=== PATIENT | male | born 1975 | race Caucasian/White ===

== ENCOUNTER → 2016-08-21 | Outpatient (CLI) | payer OTHER ==
[~2016-08-21] MED LIST: ATOR-24 PO; HYDR-3983 PO; LEVO50TA6 PO; LISI40TA PO; MONT1TAB5 PO; TAMS0.4C38 PO
--- NOTE | 2016-08-21 13:03 | DIAGNOSTIC IMAGING REPORT ---
KUB CLINICAL HISTORY: Dysuria. Right sided flank pain. COMPARISON STUDY: CT of the abdomen and pelvis April 30, 2015 and KUB November 26, 2015. FINDINGS: Several left renal calculi measure up to 4 mm. A right pelvic calcification represents a phlebolith. No ureteral calculi are identified. Bowel gas pattern is normal. IMPRESSION: 1. Left-sided nephrolithiasis. 2. No ureteral calculi identified. Electronically signed by: Pee Brown M.D. 08/21/2016 1:01 PM Dictated Date/Time: 08/21/2016 12:59 PM
[2016-08-21 13:26] LABS: URINE APPEARANCE CLEAR (CLEAR); URINE BILIRUBIN NEG (NEG); URINE COLOR YELLOW; URINE NITRITE NEG (NEG); UROBILINOGEN NEG (NEG)
[2016-08-21 13:34] LABS: MANUAL MICROSCOPIC REQUIRED? NO; REVIEW REQ? NO
== END | disposition home or self-care (01) ==
LOC: C.RAD 12:07
PROVIDERS: ATTEND Urology
DX: R30.0 Dysuria (principal)

== ENCOUNTER → 2016-08-28 | Outpatient (CLI) | payer OTHER ==
--- NOTE | 2016-08-28 14:11 | DIAGNOSTIC IMAGING REPORT ---
RIBS UNILATERAL WITH PA CHEST CLINICAL HISTORY: R07.81 Rib [id number] Fall trauma. Pain. COMPARISON STUDY: 11/06/2015 FINDINGS: Negative ribs. Specifically, no evidence for fracture or abnormal periosteal reaction.. Lungs are clear. No evidence for cardiac enlargement. IMPRESSION: 1. Negative right ribs. 2. Negative chest. Electronically signed by: Dane Mckenzie M.D. 08/28/2016 2:10 PM Dictated Date/Time: 08/28/2016 2:09 PM
== END | disposition home or self-care (01) ==
LOC: C.RAD 11:27
PROVIDERS: ATTEND Internal Medicine
DX: R07.81 Pleurodynia (principal); W19.XXXA Unspecified fall, initial encounter

== ENCOUNTER → 2016-09-27 | Outpatient (CLI) | payer OTHER ==
[2016-09-27 09:53] LABS: BASO % 1.1 %; BASO ABS # 0.08 K/uL (0-0.2); COMPLETE YES; EOS % 1.4 %; LYMPH % 25.4 %; LYMPH ABS # 1.88 K/uL (1.2-3.4); MEAN CELL VOLUME 90.9 fL (80-100); MEAN CORPUSCULAR HEMOGLOBIN 32.2 pg (25-34); MEAN CORPUSCULAR HGB CONC 35.4 g/dl (32-36); MEAN PLATELET VOLUME 9.6 fL (7.4-10.4); MONO % 11.2 %; NEUT % 60.9 %; PLATELET COUNT 287 K/uL (130-400); RED BLOOD COUNT 5.06 M/uL (4.7-6.1)
[2016-09-27 10:31] LABS: THYROID STIMULATING HORMONE 16.8 uIu/ml (0.300-4.500)
== END | disposition home or self-care (01) ==
LOC: C.LAB 09:20
PROVIDERS: ATTEND Internal Medicine
DX: E03.9 Hypothyroidism, unspecified (principal); D72.829 Elevated white blood cell count, unspecified

== ENCOUNTER → 2016-10-16 | Outpatient (CLI) | payer OTHER ==
--- NOTE | 2016-10-16 11:58 | DIAGNOSTIC IMAGING REPORT ---
THYROID ULTRASOUND HISTORY: E04.2 Multiple thyroid nodules, 6 month follow-[id number] COMPARISON: Thyroid ultrasound 04/06/2016. FINDINGS: Right lobe: 6.0 x 2.4 x 2.0 cm. The gland is heterogeneous. There is again noted a 1.6 x 0.8 x 0.7 cm solid and cystic nodule. This remains unchanged. Left lobe: 6.4 x 2.5 x 1.9 cm. A stable 6 mm complex nodule. Isthmus: 6 mm in thickness. No nodules. IMPRESSION: Mildly enlarged and heterogeneous thyroid gland is again noted. Stable small bilateral nodules with the largest on the right measuring 1.6 cm. These do not meet sonographic criteria for biopsy. Electronically signed by: Tai Hyatt M.D. 10/16/2016 11:56 AM Dictated Date/Time: 10/16/2016 11:54 AM
== END | disposition home or self-care (01) ==
LOC: C.ULTR 10:59
PROVIDERS: ATTEND Internal Medicine
DX: E04.2 Nontoxic multinodular goiter (principal)

== ENCOUNTER → 2016-11-13 | Outpatient (CLI) | payer OTHER ==
--- NOTE | 2016-11-13 17:26 | DIAGNOSTIC IMAGING REPORT ---
KUB HISTORY: N20.0 Nephrolithiasis COMPARISON: KUB 08/21/2016. FINDINGS: The bowel gas pattern is unremarkable. There are no dilated loops of small bowel to suggest an obstruction. The renal shadows are mostly obscured by overlying bowel. This likely obscures the patient's known left renal calculi. Punctate density overlying the left renal shadow is likely within the bowel. No ureteral or bladder catheter identified. No pneumoperitoneum or pneumatosis. IMPRESSION: The patient's known left renal calculi are obscured by overlying bowel. No ureteral or bladder calculi identified. Electronically signed by: Tai Hyatt M.D. 11/13/2016 5:24 PM Dictated Date/Time: 11/13/2016 5:23 PM
== END | disposition home or self-care (01) ==
LOC: C.RAD 16:49
PROVIDERS: ATTEND Urology
DX: N20.0 Calculus of kidney (principal)

== ENCOUNTER 2017-03-05 14:38 | Emergency (ER) | payer OTHER ==
[~2017-03-05] VITALS: Ht 185.4 cm; Wt 111.0 kg
[~2017-03-05 14:38] MED LIST changes: -LEVO50TA6 PO
[2017-03-05 14:41] VITALS: Ht 185.4 cm; Wt 111.0 kg
--- NOTE | 2017-03-05 15:21 | DIAGNOSTIC IMAGING REPORT ---
CHEST ONE VIEW PORTABLE CLINICAL HISTORY: 41 years-old Male presenting with Evaluate Fever/Sepsis. TECHNIQUE: Portable upright AP view of the chest was obtained. COMPARISON: 08/28/2016. FINDINGS: Cardiomediastinal silhouette normal. Lungs and pleural spaces clear. Osseous structures normal. Upper abdomen normal. IMPRESSION: 1. No acute cardiopulmonary disease. Electronically signed by: Estiven Yanes M.D. 03/05/2017 3:19 PM Dictated Date/Time: 03/05/2017 3:19 PM
[2017-03-05] MEDS ORDERED: LEVO50TA6 PO (15:31)
--- NOTE | 2017-03-05 15:51 | EMERGENCY ROOM VISIT NOTE ---
History Report prepared by Mark: Heath Marks Under the Supervision of: Dr. Severo Jay D.O. First contact with patient: 14:48 Chief Complaint: CARDIAC ASSESSMENT Stated Complaint: TIGHTNESS IN CHEST SLIGHT PAIN IN LEFT History of Present Illness The patient is a 41 year old male who presents to the Emergency Room with complaints of constant chest pain and tightness starting around 0500 this morning. The patient states that he woke up this morning with chest tightness and left sided chest pain, and he states that it is tight when he takes a breath , though denies any shortness of breath. He denies any leg swelling or leg pain. The patient additionally states that he recently ran a [employer] [place] race, and he did not have any symptoms. The patient states that he takes cholesterol and thyroid medication. He denies any family history of heart disease at an early age, and he states that he quit smoking in June. Source of History: patient Onset: 0500 Position: chest Quality: other (tightness) Timing: constant Associated Symptoms: No SOB Review of Systems See HPI for pertinent positives & negatives. A total of 10 systems reviewed and were otherwise negative. Past Medical & Surgical Medical Problems: (1) Hypertension Family History Cancer Diabetes mellitus Heart disease Hypertension Social History Smoking Status: Former Smoker Alcohol Use: occasionally Marital Status: Housing Status: lives with family Occupation Status: employed Current/Historical Medications Scheduled Atorvastatin (Lipitor), 40 MG PO QPM Levothyroxine Sodium (Levothyroxine Sodium), 50 MCG PO DAILY Lisinopril (Zestril), 40 MG PO DAILY Allergies Coded Allergies: No Known Allergies (Unverified , 11/15/15) Physical Exam Vital Signs Date Time Temp Pulse Resp B/P (MAP) Pulse Ox O2 Delivery O2 Flow Rate FiO2 03/05/17 15:38 58 14 95 Room Air 03/05/17 15:31 168/106 03/05/17 15:13 152/92 03/05/17 15:12 64 12 152/92 96 Room Air 03/05/17 15:09 67 03/05/17 15:08 63 12 97 03/05/17 14:52 97 Room Air 03/05/17 14:41 36.6 75 20 178/97 97 Room Air Physical Exam CONSTITUTIONAL/VITAL SIGNS: Reviewed / noted above. GENERAL: Non-toxic in appearance. INTEGUMENTARY: Warm, dry, and [place]. HEAD: Normocephalic. EYES: without scleral icterus or trauma. ENT/OROPHARYNX: clear and moist. LYMPHADENOPATHY/NECK: Is supple without lymphadenopathy or meningismus. RESPIRATORY: Lungs clear and equal. CARDIOVASCULAR: Regular rate and rhythm. GI/ABDOMEN: Soft and nontender. No organomegaly or pulsatile mass. No rebound or guarding. Normal bowel sounds. EXTREMITIES: Warm and well perfused. BACK: No CVA tenderness. NEUROLOGICAL: Intact without focal deficits. PSYCHIATRIC: normal affect. MUSCULOSKELETAL: Normally developed with good muscle tone. Medical Decision & Procedures ER Provider Diagnostic Interpretation: Radiology results as stated below per my review and radiologist interpretation: CHEST ONE VIEW PORTABLE CLINICAL HISTORY: 41 years-old Male presenting with Evaluate Fever/Sepsis. TECHNIQUE: Portable upright AP view of the chest was obtained. COMPARISON: 08/28/2016. FINDINGS: Cardiomediastinal silhouette normal. Lungs and pleural spaces clear. Osseous structures normal. Upper abdomen normal. IMPRESSION: 1. No acute cardiopulmonary disease. Electronically signed by: Estiven Yanes M.D. 03/05/2017 3:19 PM Dictated Date/Time: 03/05/2017 3:19 PM Laboratory Results Test 03/05/17 15:09 Bedside Troponin I < 0.030 ng/ml (0-0.045) Laboratory results as stated above per my review. ECG Indication: chest pain Rate (beats per minute): 74 Rhythm: normal sinus Findings: no ectopy, other (No injury) ED Course 1448: Previous medical records were reviewed. The patient was evaluated in room A2. A complete history and physical examination was performed. 1558: On reevaluation, the patient is feeling well. I discussed the results and findings with the patient. He verbalized agreement of the treatment plan. He was discharged home. Medical Decision the differential was considered includes acute myocardial infarction, acute coronary syndrome, myocarditis, pericarditis, pericardial effusions /tamponade, esophageal perforation, thoracic aortic dissection, pulmonary embolism, pneumonia, pneumothorax, pancreatitis, shingles, acute cholecystitis, perforated abdominal viscus. This is a 41-year-old male who presents to the ED with a chief complaint of slight tightness in his chest that is most prominent when he attempts take a deep breath. He also reports a small pain in his chest. The patient's symptoms started around 5 AM. The patient reports a history of high cholesterol and thyroid issues which he takes medication. He denies any early family history of heart disease. He is not a current smoker. He has not had any recent exertional symptoms. He reports that he recently ran a 4K race and did not have any symptoms. He denies any lower extremity swelling or pain. Denies other DVT risk factors. The patient's initial blood pressure was elevated. His physical exam is unremarkable. An EKG shows sinus rhythm at a rate of 74. Troponin is negative. Chest x-ray did not show acute disease. Complete metabolic panel was unremarkable. The patient was told results. He is felt to be stable for discharge and outpatient follow-up. Medication Reconcilliation Current Medication List: was personally reviewed by me Blood Pressure Screening Patient's blood pressure: Elevated blood pressure Blood pressure disposition: Referred to PCP Impression Primary Impression: Substernal chest pain Scribe Attestation The scribe's documentation has been prepared under my direction and personally reviewed by me in its entirety. I confirm that the note above accurately reflects all work, treatment, procedures, and medical decision making performed by me. Departure Information Dispostion Home / Self-Care Referrals Luigi Sarabia M.D. (PCP) Forms IMPORTANT VISIT INFORMATION Patient Instructions My [facility] [employer] Additional Instructions Test results today were normal. Follow-up with your doctor for recheck as needed or if symptoms persist.
[2017-03-05 16:16] LABS: ISTAT CREATININE 1.1 mg/dl (0.6-1.3); ISTAT HEMOGLOBIN 16.7 g/dl (14.0-18.0); ISTAT IONIZED CALCIUM 1.29 mmol/l (1.12-1.32)
[2017-03-05 16:17] VITALS: BP 164/103; PULSE 58; TEMP 36.6; O2SAT 97
== END 2017-03-05 16:17 | disposition home or self-care (01) ==
LOC: C.EDB 14:39 → C.EDA 16:17
DX: R07.2 Precordial pain (principal); I10 Essential (primary) hypertension; Z80.9 Family history of malignant neoplasm, unspecified; Z83.3 Family history of diabetes mellitus; Z82.49 Family history of ischemic heart disease and other diseases of the circulatory system; Z87.891 Personal history of nicotine dependence; Z79.899 Other long term (current) drug therapy

== ENCOUNTER → 2017-04-13 | Outpatient (CLI) | payer OTHER ==
[~2017-04-13] MED LIST changes: -HYDR-3983 PO; +LEVO50TA6 PO; -MONT1TAB5 PO; -TAMS0.4C38 PO
[2017-04-13 09:52] LABS: ALT/SGPT 30 U/L (12-78); BLOOD UREA NITROGEN 13 mg/dl (7-18); BUN/CREATININE RATIO 14.3 (10-20); CALCIUM 8.9 mg/dl (8.5-10.1); CARBON DIOXIDE 29 mmol/L (21-32); CHLORIDE 104 mmol/L (98-107); CHOLESTEROL 87 mg/dl (0-200); CREATININE 0.89 mg/dl (0.60-1.40); GLUCOSE 88 mg/dl (70-99); POTASSIUM 4.4 mmol/L (3.5-5.1); SODIUM 139 mmol/L (136-145); TRIGLYCERIDES 90 mg/dl (0-150); VERY LOW DENSITY LIPOPROT CALC 18 mg/dl
[2017-04-13 10:03] LABS: ALB/GLOB RATIO 1.1 (0.9-2); ALKALINE PHOSPHATASE 107 U/L (45-117); AST/SGOT 22 U/L (15-37); CHOLESTEROL/HDL RATIO 2.6; HDL CHOLESTEROL 34 mg/dl; LDL CHOLESTEROL CALCULATED 35 mg/dl
[2017-04-13 10:59] LABS: ESTIMATED AVERAGE GLUCOSE 111 mg/dl; HA1C FLAG Normal (Normal)
== END | disposition home or self-care (01) ==
LOC: C.LAB 07:00
PROVIDERS: ATTEND Physician Assistant Medical
DX: E78.00 Pure hypercholesterolemia, unspecified (principal); Z12.5 Encounter for screening for malignant neoplasm of prostate; R73.03 Prediabetes; E03.9 Hypothyroidism, unspecified

== ENCOUNTER → 2017-06-16 | Outpatient (CLI) | payer OTHER ==
[2017-06-16 18:44] LABS: LYME DISEASE AB IGG NEG (NEG); LYME DISEASE AB IGM NEG (NEG)
== END | disposition home or self-care (01) ==
LOC: C.LABBFT 14:06
PROVIDERS: ATTEND Physician Assistant Medical
DX: E03.9 Hypothyroidism, unspecified (principal); W57.XXXA Bitten or stung by nonvenomous insect and other nonvenomous arthropods, initial encounter